=== PATIENT | male | born 1975 | race Caucasian/White ===

== ENCOUNTER 2016-07-16 13:26 | Emergency (ER) | payer MEDICARE, MEDICAID ==
[~2016-07-16] VITALS: Ht 172.7 cm; Wt 90.5 kg
[~2016-07-16 13:26] MED LIST: CITA20TA9 PO; RISPC50 IM; TRAZ-147 PO; VITAD1000 PO
[2016-07-16 18:39] VITALS: BP 125/79
[2016-07-16 18:40] LABS: BASOPHILS % (AUTO) 0.8 % (0.0-2.0); EOSINOPHILS % (AUTO) 3.4 % (1.0-6.0); HEMATOCRIT 42.8 % (41-53); HEMOGLOBIN 14.4 g/dL (13.5-17.5); LYMPHOCYTES # (AUTO) 2.6 K/uL (1.0-4.8); LYMPHOCYTES % (AUTO) 37.8 % (22.0-44.0); MEAN CORPUSCULAR HEMOGLOBIN 31.6 pg (26.0-34.0); MEAN CORPUSCULAR HGB CONC 33.7 G/dL (31.0-37.0); MEAN CORPUSCULAR VOLUME 94 fL (80-100); MONOCYTES # (AUTO) 0.7 K/uL (0.1-1.0); MONOCYTES % (AUTO) 10.7 % (2.0-9.0); NEUTROPHILS # (AUTO) 3.2 K/uL (1.8-7.7); NEUTROPHILS % (AUTO) 47.3 % (40.0-70.0); PLATELET COUNT (AUTO) 228 K/uL (150-450); RED BLOOD CELL COUNT(AUTO) 4.56 MIL/uL (4.50-5.90); RED CELL DISTRIBUTION WIDTH 13.7 % (11.5-14.5); WHITE BLOOD COUNT (AUTO) 6.8 K/uL (4.5-11.0)
[2016-07-16 18:53] LABS: ANION GAP 7 mmol/L (8-16); CARBON DIOXIDE 28 mmol/L (22-29); CHLORIDE 103 mmol/L (98-107); GLOMERULAR FILTR. RATE CALC > 60 mL/min (>60); POTASSIUM 4.3 mmol/L (3.5-5.1); SODIUM SERUM 138 mmol/L (136-145); UREA NITROGEN, BLOOD 9 mg/dL (7-18)
[2016-07-16 18:55] LABS: ALANINE AMINOTRANSFERASE 16 U/L (12-78); ALBUMIN 3.2 g/dL (3.4-5.0); ASPARTATE AMINOTRANSFERASE 11 U/L (15-37); BILIRUBIN,TOTAL 0.2 mg/dL (0.1-1.0); TOTAL PROTEIN, SERUM 6.3 g/dL (6.4-8.2)
== END 2016-07-16 18:44 | disposition home or self-care (01) ==
LOC: EMS 13:28
DX: F32.9 Major depressive disorder, single episode, unspecified (principal); F41.9 Anxiety disorder, unspecified; F20.9 Schizophrenia, unspecified; K21.9 Gastro-esophageal reflux disease without esophagitis; F12.90 Cannabis use, unspecified, uncomplicated
CPT/HCPCS: 36415; 80053; 80307; 85025; 99284; G0480

== ENCOUNTER 2016-09-01 08:38 | Emergency (ER) | payer MEDICARE, MEDICAID ==
[~2016-09-01] VITALS: Ht 167.6 cm; Wt 90.9 kg
[2016-09-01 09:09] LABS: BASOPHILS % (AUTO) 1.4 % (0.0-2.0); EOSINOPHILS % (AUTO) 1.7 % (1.0-6.0); HEMATOCRIT 40.7 % (41-53); HEMOGLOBIN 13.7 g/dL (13.5-17.5); LYMPHOCYTES # (AUTO) 1.5 K/uL (1.0-4.8); LYMPHOCYTES % (AUTO) 23.2 % (22.0-44.0); MEAN CORPUSCULAR HEMOGLOBIN 30.7 pg (26.0-34.0); MEAN CORPUSCULAR HGB CONC 33.7 G/dL (31.0-37.0); MEAN CORPUSCULAR VOLUME 91 fL (80-100); MONOCYTES # (AUTO) 0.6 K/uL (0.1-1.0); MONOCYTES % (AUTO) 8.6 % (2.0-9.0); NEUTROPHILS # (AUTO) 4.3 K/uL (1.8-7.7); NEUTROPHILS % (AUTO) 65.1 % (40.0-70.0); PLATELET COUNT (AUTO) 205 K/uL (150-450); RED BLOOD CELL COUNT(AUTO) 4.47 MIL/uL (4.50-5.90); RED CELL DISTRIBUTION WIDTH 12.8 % (11.5-14.5); WHITE BLOOD COUNT (AUTO) 6.6 K/uL (4.5-11.0)
[2016-09-01] MEDS ORDERED: DIAZEPAM 5 MG/ML 2 ML SYRINGE IVP ONE (09:15)
[2016-09-01] MEDS ORDERED: SODIUM CHLORIDE 0.9% 1,000 ML IV ONE (09:15)
[2016-09-01 09:20] LABS: ANION GAP 11 mmol/L (8-16); CALCIUM, TOTAL 8.7 mg/dL (8.8-10.5); CARBON DIOXIDE 24 mmol/L (22-29); CHLORIDE 105 mmol/L (98-107); GLOMERULAR FILTR. RATE CALC > 60 mL/min (>60); POTASSIUM 3.5 mmol/L (3.5-5.1); SODIUM SERUM 140 mmol/L (136-145); UREA NITROGEN, BLOOD 14 mg/dL (7-18)
[2016-09-01 09:25] LABS: ALANINE AMINOTRANSFERASE 17 U/L (12-78); ALBUMIN 3.7 g/dL (3.4-5.0); ASPARTATE AMINOTRANSFERASE 12 U/L (15-37); BILIRUBIN,TOTAL 0.4 mg/dL (0.1-1.0); TOTAL PROTEIN, SERUM 6.7 g/dL (6.4-8.2)
[2016-09-01 09:39] LABS: PROTHROMBIN TIME 10.4 SEC (9.4-11.6)
[2016-09-01 09:49] LABS: B-TYPE NATRIURETIC PEPTIDE 23 pg/mL (0-100)
[2016-09-01 09:54] LABS: CREATINE KINASE MB 1.2 ng/mL (0-5); CREATINE KINASE, TOTAL 111 U/L (39-308)
[2016-09-01 12:37] LABS: APPEARANCE,URINE CLEAR (CLEAR); GLUCOSE, URINE (UA) NEGATIVE (NEGATIVE); KETONES,URINE TRACE mg/dL (NEGATIVE); LEUKOCYTE ESTERASE ,URINE NEGATIVE (NEGATIVE); OCCULT BLOOD,URINE NEGATIVE (NEGATIVE); PROTEIN,URINE NEGATIVE (NEGATIVE)
[2016-09-01 12:39] LABS: ADD UA MICROSCOPIC NO
[2016-09-01 13:33] VITALS: BP 121/77
== END 2016-09-01 13:52 | disposition home or self-care (01) ==
LOC: EMS 08:40
DX: F29 Unspecified psychosis not due to a substance or known physiological condition (principal); F15.10 Other stimulant abuse, uncomplicated; K21.9 Gastro-esophageal reflux disease without esophagitis; F20.9 Schizophrenia, unspecified; F41.9 Anxiety disorder, unspecified; F12.90 Cannabis use, unspecified, uncomplicated
CPT/HCPCS: 36415; 71010; 80053; 80307; 81003; 82550; 82553; 83880; 84484; 85025; 85610; 85730; 93005; 96361; 96374; 99285; J1885; J7030

== ENCOUNTER 2016-10-07 23:30 | Inpatient (IN) | payer OTHER, MEDICAID ==
[~2016-10-07] VITALS: Ht 172.7 cm; Wt 94.9 kg
[2016-10-08 00:40] LABS: EOSINOPHILS % (AUTO) 2.4 % (1.0-6.0); HEMATOCRIT 41.9 % (41-53); HEMOGLOBIN 13.8 g/dL (13.5-17.5); LYMPHOCYTES # (AUTO) 2.2 K/uL (1.0-4.8); MEAN CORPUSCULAR HEMOGLOBIN 30.5 pg (26.0-34.0); MEAN CORPUSCULAR HGB CONC 32.9 G/dL (31.0-37.0); MEAN CORPUSCULAR VOLUME 93 fL (80-100); MONOCYTES # (AUTO) 0.6 K/uL (0.1-1.0); MONOCYTES % (AUTO) 8.2 % (2.0-9.0); NEUTROPHILS # (AUTO) 4.7 K/uL (1.8-7.7); NEUTROPHILS % (AUTO) 60.4 % (40.0-70.0); PLATELET COUNT (AUTO) 227 K/uL (150-450); RED BLOOD CELL COUNT(AUTO) 4.52 MIL/uL (4.50-5.90); RED CELL DISTRIBUTION WIDTH 13.6 % (11.5-14.5); WHITE BLOOD COUNT (AUTO) 7.8 K/uL (4.5-11.0)
[2016-10-08 00:53] LABS: ANION GAP 9 mmol/L (8-16); CALCIUM, TOTAL 9.3 mg/dL (8.8-10.5); CARBON DIOXIDE 27 mmol/L (22-29); CHLORIDE 107 mmol/L (98-107); CREATININE 0.82 mg/dL (0.60-1.30); GLOMERULAR FILTR. RATE CALC > 60 mL/min (>60); POTASSIUM 3.8 mmol/L (3.5-5.1); SODIUM SERUM 143 mmol/L (136-145); UREA NITROGEN, BLOOD 13 mg/dL (7-18)
[2016-10-08 01:00] LABS: ALANINE AMINOTRANSFERASE 19 U/L (12-78); ALBUMIN 3.2 g/dL (3.4-5.0); ASPARTATE AMINOTRANSFERASE 10 U/L (15-37); BILIRUBIN,TOTAL 0.2 mg/dL (0.1-1.0); TOTAL PROTEIN, SERUM 6.6 g/dL (6.4-8.2)
[2016-10-08] MEDS ORDERED: LORazepam 2 MG TABLET PO PRN (03:30)
[2016-10-08] MEDS ORDERED: HALOPERIDOL 5 MG TABLET PO PRN (03:30)
[2016-10-08] MEDS ORDERED: ZOLPIDEM TARTRATE 10 MG TABLET PO PRN (03:30)
[2016-10-08 03:47] LABS: APPEARANCE,URINE CLEAR (CLEAR); GLUCOSE, URINE (UA) NEGATIVE (NEGATIVE); KETONES,URINE NEGATIVE (NEGATIVE); LEUKOCYTE ESTERASE ,URINE NEGATIVE (NEGATIVE); OCCULT BLOOD,URINE NEGATIVE (NEGATIVE); PROTEIN,URINE NEGATIVE (NEGATIVE)
[2016-10-08 03:48] LABS: ADD UA MICROSCOPIC NO
[2016-10-08 12:00] VITALS: BP 115/69
[2016-10-08 16:17] VITALS: BP 122/72
[2016-10-08] MEDS: RisperiDONE 2 MG TABLET PO SCH (16:43)
[2016-10-08] MEDS ORDERED: BENZOCAINE/MENTHOL LOZENGE MM PRN (18:00)
[2016-10-08] MEDS ORDERED: CloNIDine HCL 0.1 MG TABLET PO PRN (18:00)
[2016-10-08] MEDS ORDERED: ONDANSETRON HCL 4 MG TABLET PO PRN (18:00)
[2016-10-08] MEDS ORDERED: LOPERAMIDE HCL 2 MG CAPSULE PO PRN (18:00)
[2016-10-08] MEDS ORDERED: MAG HYDROX/AL HYDROX/SIMETH ES 30 ML SUSPENSION UDCUP PO PRN (18:00)
[2016-10-08] MEDS ORDERED: MAGNESIUM HYDROXIDE SUSPENSION 30 ML UDCUP PO PRN (18:00)
[2016-10-08] MEDS ORDERED: ALBUTEROL SULFATE HFA 90 MCG/PUFF 8 GM INHALER IH PRN (18:00)
[2016-10-08] MEDS ORDERED: PETROLATUM,WHITE 71 GM JELLY TP PRN (18:00)
[2016-10-08] MEDS ORDERED: IBUPROFEN 600 MG TABLET PO PRN (18:00)
[2016-10-08] MEDS ORDERED: ACETAMINOPHEN 325 MG TABLET PO PRN (18:00)
[2016-10-08] MEDS ORDERED: BACITRACIN 28.4 GM OINTMENT TP PRN (18:00)
[2016-10-08] MEDS ORDERED: ROPINIRole HCL 0.25 MG TABLET PO SCH (21:00)
[2016-10-09 06:36] VITALS: BP 117/77
[2016-10-09 08:31] VITALS: BP 110/62
[2016-10-09] MEDS ORDERED: NICOTINE 21 MG/24 HOUR PATCH TD SCH (09:00)
[2016-10-09] MEDS: RisperiDONE 2 MG TABLET PO SCH ×2 (09:14→16:28)
[2016-10-09] MEDS: CHOLECALCIFEROL (VIT D3) 1,000 UNITS TABLET PO SCH (09:14)
[2016-10-09 16:17] VITALS: BP 119/75
[2016-10-10 06:21] VITALS: BP 118/74
[2016-10-10 08:34] VITALS: BP 115/60
[2016-10-10] MEDS: CHOLECALCIFEROL (VIT D3) 1,000 UNITS TABLET PO SCH (09:01)
[2016-10-10] MEDS: RisperiDONE 2 MG TABLET PO SCH ×2 (09:01→16:37)
[2016-10-10 16:19] VITALS: BP 109/66
[2016-10-10] MEDS: BENZTROPINE MESYLATE 0.5 MG TABLET PO SCH (17:35)
[2016-10-11 00:12] VITALS: BP 118/76
[2016-10-11 08:00] VITALS: BP 115/76
[2016-10-11] MEDS: RisperiDONE 2 MG TABLET PO SCH ×2 (08:37→16:21)
[2016-10-11] MEDS: CHOLECALCIFEROL (VIT D3) 1,000 UNITS TABLET PO SCH (08:37)
[2016-10-11] MEDS: BENZTROPINE MESYLATE 0.5 MG TABLET PO SCH ×2 (08:44→16:21)
[2016-10-11 16:15] VITALS: BP 121/71
[2016-10-12 06:38] VITALS: BP 127/71
[2016-10-12 08:13] VITALS: BP 122/69
[2016-10-12] MEDS: RisperiDONE 2 MG TABLET PO SCH ×2 (08:44→16:50)
[2016-10-12] MEDS: BENZTROPINE MESYLATE 0.5 MG TABLET PO SCH ×2 (08:44→16:50)
[2016-10-12] MEDS: CHOLECALCIFEROL (VIT D3) 1,000 UNITS TABLET PO SCH (08:44)
[2016-10-12 16:00] VITALS: BP 108/64
[2016-10-13 08:27] VITALS: BP 116/63
[2016-10-13] MEDS: RisperiDONE 2 MG TABLET PO SCH ×2 (08:42→16:18)
[2016-10-13] MEDS: CHOLECALCIFEROL (VIT D3) 1,000 UNITS TABLET PO SCH (08:42)
[2016-10-13] MEDS: BENZTROPINE MESYLATE 0.5 MG TABLET PO SCH ×2 (08:42→16:18)
[2016-10-13 16:25] VITALS: BP 105/68
[2016-10-14 00:28] VITALS: BP 100/65
[2016-10-14 08:33] VITALS: BP 104/65
[2016-10-14] MEDS: CHOLECALCIFEROL (VIT D3) 1,000 UNITS TABLET PO SCH (09:12)
[2016-10-14] MEDS: BENZTROPINE MESYLATE 0.5 MG TABLET PO SCH ×2 (09:12→16:29)
[2016-10-14] MEDS: RisperiDONE 2 MG TABLET PO SCH ×2 (09:12→16:29)
[2016-10-14 16:18] VITALS: BP 108/75
[2016-10-15 00:49] VITALS: BP 100/66
[2016-10-15 08:14] VITALS: BP 113/65
[2016-10-15] MEDS: CHOLECALCIFEROL (VIT D3) 1,000 UNITS TABLET PO SCH (08:39)
[2016-10-15] MEDS: RisperiDONE 2 MG TABLET PO SCH ×2 (08:39→16:45)
[2016-10-15] MEDS: BENZTROPINE MESYLATE 0.5 MG TABLET PO SCH ×2 (08:39→16:45)
[2016-10-15 16:15] VITALS: BP 107/61
[2016-10-16 03:44] VITALS: BP 108/70
[2016-10-16 08:16] VITALS: BP 108/65
[2016-10-16] MEDS: BENZTROPINE MESYLATE 0.5 MG TABLET PO SCH ×2 (09:10→17:00)
[2016-10-16] MEDS: CHOLECALCIFEROL (VIT D3) 1,000 UNITS TABLET PO SCH (09:10)
[2016-10-16] MEDS: RisperiDONE 2 MG TABLET PO SCH ×2 (09:10→17:00)
[2016-10-16] MEDS ORDERED: RisperiDONE MICROSPHERES 50 MG/2 ML SYRINGE IM SCH (11:00)
[2016-10-16] MEDS ORDERED: RISPC50 IM (11:02)
[2016-10-16] MEDS ORDERED: BENZ0.5T6 PO (11:02)
[2016-10-16] MEDS ORDERED: RISP2 PO (11:02)
== END 2016-10-16 18:25 | disposition home or self-care (01) | DRG 885 ==
LOC: EMS 23:32 → B2X 10-08 09:43
PROVIDERS: ADMIT Psychiatry & Neurology Child & Adolescent Psychiatry; ATTEND Psychiatry & Neurology Child & Adolescent Psychiatry
DX: F25.1 Schizoaffective disorder, depressive type (principal); R45.851 Suicidal ideations; K21.9 Gastro-esophageal reflux disease without esophagitis; F12.90 Cannabis use, unspecified, uncomplicated; F41.9 Anxiety disorder, unspecified; E55.9 Vitamin D deficiency, unspecified; F15.90 Other stimulant use, unspecified, uncomplicated; E78.5 Hyperlipidemia, unspecified; F17.210 Nicotine dependence, cigarettes, uncomplicated; G47.00 Insomnia, unspecified; J44.9 Chronic obstructive pulmonary disease, unspecified; K59.00 Constipation, unspecified; Z59.0 Homelessness; Z91.5 Personal history of self-harm; Z71.6 Tobacco abuse counseling
CPT/HCPCS: 87081; 99285; G0480; J2794

== ENCOUNTER 2016-10-19 12:17 | Emergency (ER) | payer MEDICARE, MEDICAID ==
[~2016-10-19] VITALS: Ht 165.1 cm; Wt 90.9 kg
[~2016-10-19 12:17] MED LIST changes: +BENZ0.5T6 PO; -CITA20TA9 PO; +RISP2 PO; -TRAZ-147 PO; -VITAD1000 PO
[2016-10-19 13:11] LABS: BASOPHILS % (AUTO) 0.6 % (0.0-2.0); EOSINOPHILS % (AUTO) 1.3 % (1.0-6.0); HEMATOCRIT 40.9 % (41-53); HEMOGLOBIN 13.7 g/dL (13.5-17.5); LYMPHOCYTES # (AUTO) 1.7 K/uL (1.0-4.8); LYMPHOCYTES % (AUTO) 21.7 % (22.0-44.0); MEAN CORPUSCULAR HEMOGLOBIN 30.6 pg (26.0-34.0); MEAN CORPUSCULAR HGB CONC 33.4 G/dL (31.0-37.0); MEAN CORPUSCULAR VOLUME 91 fL (80-100); MONOCYTES # (AUTO) 0.7 K/uL (0.1-1.0); MONOCYTES % (AUTO) 8.5 % (2.0-9.0); NEUTROPHILS # (AUTO) 5.2 K/uL (1.8-7.7); NEUTROPHILS % (AUTO) 67.9 % (40.0-70.0); PLATELET COUNT (AUTO) 244 K/uL (150-450); RED BLOOD CELL COUNT(AUTO) 4.47 MIL/uL (4.50-5.90); RED CELL DISTRIBUTION WIDTH 13.5 % (11.5-14.5); WHITE BLOOD COUNT (AUTO) 7.7 K/uL (4.5-11.0)
[2016-10-19 13:23] LABS: ANION GAP 16 mmol/L (8-16); CALCIUM, TOTAL 8.6 mg/dL (8.8-10.5); CARBON DIOXIDE 21 mmol/L (22-29); CHLORIDE 102 mmol/L (98-107); CREATININE 0.99 mg/dL (0.60-1.30); GLOMERULAR FILTR. RATE CALC > 60 mL/min (>60); POTASSIUM 3.1 mmol/L (3.5-5.1); SODIUM SERUM 139 mmol/L (136-145); UREA NITROGEN, BLOOD 14 mg/dL (7-18)
[2016-10-19 13:29] LABS: ALANINE AMINOTRANSFERASE 20 U/L (12-78); ALBUMIN 3.5 g/dL (3.4-5.0); ASPARTATE AMINOTRANSFERASE 15 U/L (15-37); BILIRUBIN,TOTAL 0.5 mg/dL (0.1-1.0); TOTAL PROTEIN, SERUM 6.8 g/dL (6.4-8.2)
[2016-10-19] MEDS ORDERED: ChlordiazePOXIDE HCL 25 MG CAPSULE PO ONE (16:30)
[2016-10-19 17:24] VITALS: BP 116/70
[2016-10-19] MEDS ORDERED: POTASSIUM CHLORIDE 20 MEQ ER TABLET PO ONE (17:30)
== END 2016-10-19 18:39 | disposition home or self-care (01) ==
LOC: EMS 12:21
DX: F41.9 Anxiety disorder, unspecified (principal); R00.0 Tachycardia, unspecified; E87.6 Hypokalemia; F15.10 Other stimulant abuse, uncomplicated; F10.10 Alcohol abuse, uncomplicated; F20.9 Schizophrenia, unspecified; K21.9 Gastro-esophageal reflux disease without esophagitis; Y90.3 Blood alcohol level of 60-79 mg/100 ml
CPT/HCPCS: 36415; 80053; 80307; 85025; 93005; 99285; 99406; G0480

== ENCOUNTER 2016-10-20 13:56 | Emergency (ER) | payer MEDICARE, MEDICAID ==
[~2016-10-20] VITALS: Ht 162.6 cm; Wt 136.6 kg
[2016-10-20 15:08] LABS: BASOPHILS % (AUTO) 0.6 % (0.0-2.0); EOSINOPHILS % (AUTO) 2.9 % (1.0-6.0); HEMATOCRIT 44.5 % (41-53); HEMOGLOBIN 14.6 g/dL (13.5-17.5); LYMPHOCYTES # (AUTO) 1.4 K/uL (1.0-4.8); LYMPHOCYTES % (AUTO) 18.9 % (22.0-44.0); MEAN CORPUSCULAR HEMOGLOBIN 30.5 pg (26.0-34.0); MEAN CORPUSCULAR HGB CONC 32.8 G/dL (31.0-37.0); MEAN CORPUSCULAR VOLUME 93 fL (80-100); MONOCYTES # (AUTO) 0.5 K/uL (0.1-1.0); MONOCYTES % (AUTO) 6.8 % (2.0-9.0); NEUTROPHILS # (AUTO) 5.4 K/uL (1.8-7.7); NEUTROPHILS % (AUTO) 70.8 % (40.0-70.0); PLATELET COUNT (AUTO) 282 K/uL (150-450); RED BLOOD CELL COUNT(AUTO) 4.79 MIL/uL (4.50-5.90); RED CELL DISTRIBUTION WIDTH 13.8 % (11.5-14.5); WHITE BLOOD COUNT (AUTO) 7.6 K/uL (4.5-11.0)
[2016-10-20 15:13] LABS: ANION GAP 11 mmol/L (8-16); CARBON DIOXIDE 26 mmol/L (22-29); CHLORIDE 104 mmol/L (98-107); CREATININE 0.97 mg/dL (0.60-1.30); GLOMERULAR FILTR. RATE CALC > 60 mL/min (>60); SODIUM SERUM 141 mmol/L (136-145); UREA NITROGEN, BLOOD 9 mg/dL (7-18)
[2016-10-20 15:19] LABS: ALANINE AMINOTRANSFERASE 22 U/L (12-78); ALBUMIN 3.6 g/dL (3.4-5.0); ASPARTATE AMINOTRANSFERASE 16 U/L (15-37); BILIRUBIN,TOTAL 0.5 mg/dL (0.1-1.0); TOTAL PROTEIN, SERUM 7.2 g/dL (6.4-8.2)
[2016-10-20] MEDS ORDERED: IBUPROFEN 800 MG TABLET PO ONE (18:00)
[2016-10-20] MEDS ORDERED: BENZTROPINE MESYLATE 2 MG TABLET PO ONE (18:00)
[2016-10-20 19:42] VITALS: BP 135/82
== END 2016-10-20 19:45 | disposition home or self-care (01) ==
LOC: EEVIPCON 13:58 → EMS 13:58
DX: S96.912A Strain of unspecified muscle and tendon at ankle and foot level, left foot, initial encounter (principal); F20.9 Schizophrenia, unspecified; F19.10 Other psychoactive substance abuse, uncomplicated; G25.9 Extrapyramidal and movement disorder, unspecified; F41.9 Anxiety disorder, unspecified; K21.9 Gastro-esophageal reflux disease without esophagitis
CPT/HCPCS: 36415; 80053; 80307; 85025; 93005; 99285; G0480

== ENCOUNTER 2016-11-06 17:34 | Emergency (ER) | payer MEDICARE, MEDICAID ==
[~2016-11-06] VITALS: Ht 167.6 cm; Wt 90.0 kg
[2016-11-06] MEDS: DiphenhydrAMINE HCL 50 MG/ML VIAL IVP ONE (18:56)
[2016-11-06] MEDS: KETOROLAC TROMETHAMINE 30 MG/ML VIAL IVP ONE (18:56)
[2016-11-06] MEDS: SODIUM CHLORIDE 0.9% 1,000 ML IV ONE (18:56)
[2016-11-06] MEDS: ONDANSETRON HCL 4 MG/2 ML VIAL IVP ONE (18:56)
[2016-11-06 20:14] VITALS: BP 119/71
== END 2016-11-06 20:18 | disposition home or self-care (01) ==
LOC: EMS 17:35
DX: F41.9 Anxiety disorder, unspecified (principal); R51 Headache; F17.210 Nicotine dependence, cigarettes, uncomplicated; K21.9 Gastro-esophageal reflux disease without esophagitis; F20.9 Schizophrenia, unspecified
CPT/HCPCS: 96374; 96375; 99284; 99406; J1200; J1885; J2405; J7030

== ENCOUNTER 2017-04-03 19:33 | Inpatient (IN) | payer OTHER, MEDICAID ==
[~2017-04-03] VITALS: Ht 165.1 cm; Wt 109.5 kg
[2017-04-03 20:22] LABS: BASOPHILS # (AUTO) 0.04 K/uL (0.00-0.20); BASOPHILS % (AUTO) 0.6 % (0.0-2.0); EOSINOPHILS # (AUTO) 0.22 K/uL (0.00-0.70); EOSINOPHILS % (AUTO) 3.27 % (1.0-6.0); HEMATOCRIT 41.6 % (41-53); HEMOGLOBIN 14.1 g/dL (13.5-17.5); LYMPHOCYTES # (AUTO) 2.2 K/uL (1.0-4.8); LYMPHOCYTES % (AUTO) 32.2 % (22.0-44.0); MEAN CORPUSCULAR HEMOGLOBIN 31.2 pg (26.0-34.0); MEAN CORPUSCULAR VOLUME 92 fL (80-100); MONOCYTES # (AUTO) 0.7 K/uL (0.1-1.0); MONOCYTES % (AUTO) 9.9 % (2.0-9.0); NEUTROPHILS # (AUTO) 3.6 K/uL (1.8-7.7); NEUTROPHILS % (AUTO) 54.1 % (40.0-70.0); PLATELET COUNT (AUTO) 248 K/uL (150-450); RED BLOOD CELL COUNT(AUTO) 4.53 MIL/uL (4.50-5.90); RED CELL DISTRIBUTION WIDTH 13.4 % (11.5-14.5); WHITE BLOOD COUNT (AUTO) 6.7 K/uL (4.5-11.0)
[2017-04-03 20:44] LABS: ANION GAP 7 mmol/L (8-16); CALCIUM, TOTAL 8.9 mg/dL (8.8-10.5); CARBON DIOXIDE 27 mmol/L (22-29); CHLORIDE 105 mmol/L (98-107); CREATININE 0.96 mg/dL (0.60-1.30); GLOMERULAR FILTR. RATE CALC > 60 mL/min (>60); POTASSIUM 4.3 mmol/L (3.5-5.1); SODIUM SERUM 139 mmol/L (136-145); UREA NITROGEN, BLOOD 16 mg/dL (7-18)
[2017-04-03] MEDS ORDERED: HALOPERIDOL 5 MG TABLET PO PRN (20:45)
[2017-04-03] MEDS ORDERED: ZOLPIDEM TARTRATE 10 MG TABLET PO PRN (20:45)
[2017-04-03 20:50] LABS: ALANINE AMINOTRANSFERASE 37 U/L (12-78); ALBUMIN 3.4 g/dL (3.4-5.0); ASPARTATE AMINOTRANSFERASE 21 U/L (15-37); BILIRUBIN,TOTAL 0.3 mg/dL (0.1-1.0); TOTAL PROTEIN, SERUM 6.6 g/dL (6.4-8.2)
[2017-04-04 00:15] VITALS: BP 124/76
[2017-04-04] MEDS ORDERED: INFLUENZA VIRUS VACCINE QVS 2017-18 (3YR+)/PF 60 MCG/0.5 ML SYRINGE IM ONE (03:30)
[2017-04-04 08:39] VITALS: BP 123/77
[2017-04-04] MEDS: LORazepam 2 MG TABLET PO PRN (16:13)
[2017-04-04 16:29] VITALS: BP 135/75
[2017-04-04] MEDS: MIRTAZAPINE 15 MG TABLET PO SCH (20:09)
[2017-04-04] MEDS ORDERED: MIRTAZAPINE 15 MG TABLET PO SCH (21:00)
[2017-04-05 06:04] VITALS: BP 113/66
[2017-04-05 08:34] VITALS: BP 128/74
[2017-04-05 17:32] VITALS: BP 132/71
[2017-04-05] MEDS: MIRTAZAPINE 15 MG TABLET PO SCH (20:07)
[2017-04-06 03:29] VITALS: BP 111/62
[2017-04-06 08:26] VITALS: BP 133/72
[2017-04-06] MEDS: CHOLECALCIFEROL (VIT D3) 1,000 UNITS TABLET PO SCH (09:06)
[2017-04-06 18:45] VITALS: BP 129/79
[2017-04-06] MEDS: MIRTAZAPINE 15 MG TABLET PO SCH (20:55)
[2017-04-07 06:06] VITALS: BP 124/65
[2017-04-07] MEDS: CHOLECALCIFEROL (VIT D3) 1,000 UNITS TABLET PO SCH (08:29)
[2017-04-07 08:54] VITALS: BP 117/75
[2017-04-07] MEDS: LORazepam 2 MG TABLET PO PRN (14:07)
[2017-04-07 16:02] VITALS: BP 119/71
[2017-04-07] MEDS: MIRTAZAPINE 15 MG TABLET PO SCH (20:47)
[2017-04-08 01:17] VITALS: BP 109/66
[2017-04-08 08:38] VITALS: BP 109/63
[2017-04-08] MEDS: CHOLECALCIFEROL (VIT D3) 1,000 UNITS TABLET PO SCH (08:41)
[2017-04-08 16:39] VITALS: BP 129/78
[2017-04-08] MEDS ORDERED: MIRTAZAPINE 15 MG TABLET PO SCH (21:00)
[2017-04-09 06:27] VITALS: BP 105/65
[2017-04-09] MEDS: CHOLECALCIFEROL (VIT D3) 1,000 UNITS TABLET PO SCH (08:29)
[2017-04-09] MEDS: LORazepam 2 MG TABLET PO PRN (08:30)
[2017-04-09 09:09] VITALS: BP 122/67
[2017-04-09] MEDS ORDERED: MIRT30 PO (15:51)
[2017-04-09] MEDS ORDERED: VITAD1000 PO (15:52)
[2017-04-09 16:09] VITALS: BP 106/65
== END 2017-04-09 17:40 | disposition home or self-care (01) | DRG 885 ==
LOC: EMS 19:35 → B2S 22:15 → B2X 04-09 10:15
PROVIDERS: ADMIT Psychiatry & Neurology Psychiatry; ATTEND Psychiatry & Neurology Psychiatry
PROC: 3E0234Z Introduction of Serum, Toxoid and Vaccine into Muscle, Percutaneous Approach (ICD-10-PCS; principal; 2017-04-04)
DX: F25.1 Schizoaffective disorder, depressive type (principal); R45.851 Suicidal ideations; Z59.0 Homelessness; E78.5 Hyperlipidemia, unspecified; F12.10 Cannabis abuse, uncomplicated; F17.200 Nicotine dependence, unspecified, uncomplicated; F15.90 Other stimulant use, unspecified, uncomplicated; F41.9 Anxiety disorder, unspecified; K21.9 Gastro-esophageal reflux disease without esophagitis; R45.84 Anhedonia; Z23 Encounter for immunization
CPT/HCPCS: 82306; 87081; 90471; 99285; G0480

== ENCOUNTER 2017-05-05 19:22 | Inpatient (IN) | payer MEDICAID, MEDICARE, OTHER ==
[~2017-05-05] VITALS: Ht 162.6 cm; Wt 112.9 kg
[~2017-05-05 19:22] MED LIST changes: -BENZ0.5T6 PO; +MIRT30 PO; -RISP2 PO; -RISPC50 IM; +VITAD1000 PO
[2017-05-05 19:40] LABS: BASOPHILS # (AUTO) 0.04 K/uL (0.00-0.20); BASOPHILS % (AUTO) 0.7 % (0.0-2.0); EOSINOPHILS % (AUTO) 3.37 % (1.0-6.0); HEMATOCRIT 41.5 % (41-53); LYMPHOCYTES # (AUTO) 1.7 K/uL (1.0-4.8); LYMPHOCYTES % (AUTO) 29.3 % (22.0-44.0); MEAN CORPUSCULAR HEMOGLOBIN 31.1 pg (26.0-34.0); MEAN CORPUSCULAR HGB CONC 33.7 G/dL (31.0-37.0); MEAN CORPUSCULAR VOLUME 92 fL (80-100); MONOCYTES # (AUTO) 0.5 K/uL (0.1-1.0); MONOCYTES % (AUTO) 9.1 % (2.0-9.0); NEUTROPHILS # (AUTO) 3.4 K/uL (1.8-7.7); NEUTROPHILS % (AUTO) 57.6 % (40.0-70.0); PLATELET COUNT (AUTO) 263 K/uL (150-450); RED BLOOD CELL COUNT(AUTO) 4.49 MIL/uL (4.50-5.90); RED CELL DISTRIBUTION WIDTH 13.4 % (11.5-14.5); WHITE BLOOD COUNT (AUTO) 5.9 K/uL (4.5-11.0)
[2017-05-05 19:54] LABS: ANION GAP 8 mmol/L (8-16); CALCIUM, TOTAL 8.4 mg/dL (8.8-10.5); CARBON DIOXIDE 25 mmol/L (22-29); CHLORIDE 109 mmol/L (98-107); CREATININE 1.06 mg/dL (0.60-1.30); GLOMERULAR FILTR. RATE CALC > 60 mL/min (>60); POTASSIUM 3.9 mmol/L (3.5-5.1); SODIUM SERUM 142 mmol/L (136-145); UREA NITROGEN, BLOOD 15 mg/dL (7-18)
[2017-05-05 20:00] LABS: ALANINE AMINOTRANSFERASE 52 U/L (12-78); ALBUMIN 3.2 g/dL (3.4-5.0); ASPARTATE AMINOTRANSFERASE 18 U/L (15-37); BILIRUBIN,TOTAL 0.2 mg/dL (0.1-1.0); TOTAL PROTEIN, SERUM 6.2 g/dL (6.4-8.2)
[2017-05-05] MEDS ORDERED: ZOLPIDEM TARTRATE 10 MG TABLET PO PRN (20:30)
[2017-05-05] MEDS ORDERED: HALOPERIDOL 5 MG TABLET PO PRN (20:30)
[2017-05-06 00:41] VITALS: BP 118/69
[2017-05-06 09:17] VITALS: BP 117/75
[2017-05-06] MEDS: ARIPiprazole 5 MG TABLET PO SCH (16:02)
[2017-05-06 17:43] VITALS: BP 118/78
[2017-05-06] MEDS: MIRTAZAPINE 15 MG TABLET PO SCH (21:08)
[2017-05-07 06:20] VITALS: BP 123/72
[2017-05-07] MEDS: ARIPiprazole 5 MG TABLET PO SCH (08:16)
[2017-05-07 08:19] VITALS: BP 114/64
[2017-05-07 16:18] VITALS: BP 108/70
[2017-05-07] MEDS: MIRTAZAPINE 15 MG TABLET PO SCH (20:29)
[2017-05-08 07:15] VITALS: BP 119/75
[2017-05-08 08:00] VITALS: BP 122/61
[2017-05-08] MEDS: ARIPiprazole 10 MG TABLET PO SCH (09:03)
[2017-05-08] MEDS: LORazepam 2 MG TABLET PO PRN (09:31)
[2017-05-08 16:05] VITALS: BP 130/82
[2017-05-08] MEDS: MIRTAZAPINE 15 MG TABLET PO SCH (20:28)
[2017-05-09 06:14] VITALS: BP 107/68
[2017-05-09 08:56] VITALS: BP 103/61
[2017-05-09] MEDS: ARIPiprazole 10 MG TABLET PO SCH (09:56)
[2017-05-09] MEDS: LORazepam 2 MG TABLET PO PRN ×2 (10:05→17:00)
[2017-05-09 16:03] VITALS: BP 101/65
[2017-05-09] MEDS: MIRTAZAPINE 15 MG TABLET PO SCH (20:08)
[2017-05-10 00:46] VITALS: BP 103/63
[2017-05-10 08:10] VITALS: BP 124/76
[2017-05-10] MEDS: ARIPiprazole 10 MG TABLET PO SCH (08:13)
[2017-05-10 16:09] VITALS: BP 135/88
[2017-05-10] MEDS: MIRTAZAPINE 15 MG TABLET PO SCH (20:25)
[2017-05-11 02:05] VITALS: BP 116/63
[2017-05-11 08:36] VITALS: BP 116/76
[2017-05-11] MEDS ORDERED: ARIPiprazole 10 MG TABLET PO SCH (09:00)
[2017-05-11] MEDS ORDERED: ARIP10TA8 PO (11:22)
[2017-05-11] MEDS ORDERED: MIRT15 PO (11:22)
== END 2017-05-11 15:17 | disposition home or self-care (01) | DRG 885 ==
LOC: EMS 19:25 → B2S 21:30 → B2X 05-09 21:21
PROVIDERS: ADMIT Psychiatry & Neurology Psychiatry; ATTEND Psychiatry & Neurology Psychiatry
DX: F25.1 Schizoaffective disorder, depressive type (principal); E44.1 Mild protein-calorie malnutrition; R45.851 Suicidal ideations; Z68.41 Body mass index [BMI] 40.0-44.9, adult; F12.90 Cannabis use, unspecified, uncomplicated; F32.9 Major depressive disorder, single episode, unspecified; F41.9 Anxiety disorder, unspecified; K21.9 Gastro-esophageal reflux disease without esophagitis; Z59.0 Homelessness; Z79.899 Other long term (current) drug therapy
CPT/HCPCS: 87081; 99285; G0480

== ENCOUNTER 2017-05-20 18:05 | Inpatient (IN) | payer OTHER, MEDICAID ==
[~2017-05-20] VITALS: Ht 162.6 cm; Wt 109.4 kg
[~2017-05-20 18:05] MED LIST changes: +ARIP10TA8 PO; +MIRT15 PO; -MIRT30 PO; -VITAD1000 PO
[2017-05-20 19:42] LABS: BASOPHILS # (AUTO) 0.06 K/uL (0.00-0.20); BASOPHILS % (AUTO) 0.9 % (0.0-2.0); EOSINOPHILS # (AUTO) 0.41 K/uL (0.00-0.70); EOSINOPHILS % (AUTO) 6.29 % (1.0-6.0); HEMATOCRIT 45.2 % (41-53); HEMOGLOBIN 15.3 g/dL (13.5-17.5); LYMPHOCYTES # (AUTO) 1.9 K/uL (1.0-4.8); LYMPHOCYTES % (AUTO) 29.4 % (22.0-44.0); MEAN CORPUSCULAR HEMOGLOBIN 31.3 pg (26.0-34.0); MEAN CORPUSCULAR HGB CONC 33.9 G/dL (31.0-37.0); MEAN CORPUSCULAR VOLUME 93 fL (80-100); MONOCYTES # (AUTO) 0.5 K/uL (0.1-1.0); MONOCYTES % (AUTO) 7.3 % (2.0-9.0); NEUTROPHILS # (AUTO) 3.7 K/uL (1.8-7.7); NEUTROPHILS % (AUTO) 56.1 % (40.0-70.0); PLATELET COUNT (AUTO) 232 K/uL (150-450); RED BLOOD CELL COUNT(AUTO) 4.88 MIL/uL (4.50-5.90); RED CELL DISTRIBUTION WIDTH 13.5 % (11.5-14.5); WHITE BLOOD COUNT (AUTO) 6.5 K/uL (4.5-11.0)
[2017-05-20 20:28] LABS: ASPARTATE AMINOTRANSFERASE 15 U/L (15-37); BILIRUBIN,TOTAL 0.3 mg/dL (0.1-1.0); CALCIUM, TOTAL 9.1 mg/dL (8.8-10.5); CARBON DIOXIDE 24 mmol/L (22-29); CREATININE 1.16 mg/dL (0.60-1.30); GLOMERULAR FILTR. RATE CALC > 60 mL/min (>60); TOTAL PROTEIN, SERUM 6.6 g/dL (6.4-8.2); UREA NITROGEN, BLOOD 8 mg/dL (7-18)
[2017-05-20 20:38] LABS: ALANINE AMINOTRANSFERASE 33 U/L (12-78); ALBUMIN 3.5 g/dL (3.4-5.0); ANION GAP 12 mmol/L (8-16); CHLORIDE 104 mmol/L (98-107); POTASSIUM 3.5 mmol/L (3.5-5.1); SODIUM SERUM 140 mmol/L (136-145)
[2017-05-21] MEDS ORDERED: ZOLPIDEM TARTRATE 10 MG TABLET PO PRN (02:15)
[2017-05-21] MEDS ORDERED: HALOPERIDOL 5 MG TABLET PO PRN (02:15)
[2017-05-21 04:23] VITALS: BP 119/73
[2017-05-21 04:25] VITALS: BP 119/73
[2017-05-21] MEDS ORDERED: -PHARMACY VACCINE NOTE- MISC ONE ×2 (04:30)
[2017-05-21 07:52] LABS: APPEARANCE,URINE CLEAR (CLEAR); GLUCOSE, URINE (UA) NEGATIVE (NEGATIVE); KETONES,URINE TRACE mg/dL (NEGATIVE); LEUKOCYTE ESTERASE ,URINE NEGATIVE (NEGATIVE); OCCULT BLOOD,URINE NEGATIVE (NEGATIVE); PH,URINE 5.5 (5.0-8.0); PROTEIN,URINE NEGATIVE (NEGATIVE)
[2017-05-21 07:55] LABS: ADD UA MICROSCOPIC NO
[2017-05-21 08:37] VITALS: BP 122/81
[2017-05-21] MEDS: ARIPiprazole 10 MG TABLET PO SCH (12:59)
[2017-05-21 16:06] VITALS: BP_SYST 107; BP_SYST 114; BP_DIAS 63; BP_DIAS 64
[2017-05-21] MEDS ORDERED: DIVALPROEX SODIUM 500 MG ER TABLET PO SCH (17:00)
[2017-05-21] MEDS ORDERED: IBUPROFEN 400 MG TABLET PO PRN (17:15)
[2017-05-21] MEDS ORDERED: ACETAMINOPHEN 325 MG TABLET PO PRN (17:15)
[2017-05-21] MEDS: MIRTAZAPINE 15 MG TABLET PO SCH (20:39)
[2017-05-22 07:04] VITALS: BP 125/80
[2017-05-22 08:12] LABS: HEMOGLOBIN A1C 5.4 % (4.5-6.2)
[2017-05-22 08:32] VITALS: BP 126/63
[2017-05-22] MEDS: ARIPiprazole 10 MG TABLET PO SCH (08:37)
[2017-05-22 08:58] LABS: CHOL/HDL RATIO 4.1 (4.2-7.3); THYROID STIMULATING HORMONE 0.51 uIU/mL (0.36-3.74)
[2017-05-22 16:23] VITALS: BP 113/74
[2017-05-22] MEDS: MIRTAZAPINE 15 MG TABLET PO SCH (20:35)
[2017-05-23 00:26] VITALS: BP 117/79
[2017-05-23 08:28] VITALS: BP 117/70
[2017-05-23] MEDS: ARIPiprazole 10 MG TABLET PO SCH (08:40)
[2017-05-23] MEDS ORDERED: ARIPiprazole LAUROXIL ER SUSPENSION 882 MG/3.2 ML SYRINGE IM SCH (09:00)
[2017-05-23 16:11] VITALS: BP 129/79
[2017-05-23] MEDS: MIRTAZAPINE 15 MG TABLET PO SCH (20:27)
[2017-05-24 00:56] VITALS: BP 115/69
[2017-05-24 08:40] VITALS: BP 122/69
[2017-05-24] MEDS: ARIPiprazole 10 MG TABLET PO SCH (09:17)
[2017-05-24 16:18] VITALS: BP 111/68
[2017-05-24] MEDS: MIRTAZAPINE 15 MG TABLET PO SCH (20:19)
[2017-05-25 02:22] VITALS: BP 116/74
[2017-05-25 08:44] VITALS: BP 109/64
[2017-05-25] MEDS: ARIPiprazole 10 MG TABLET PO SCH (09:07)
[2017-05-25 16:19] VITALS: BP 119/61
[2017-05-25] MEDS: MIRTAZAPINE 15 MG TABLET PO SCH (20:43)
[2017-05-26 00:18] VITALS: BP 117/65
[2017-05-26 08:00] VITALS: BP 119/67
[2017-05-26] MEDS: ARIPiprazole 10 MG TABLET PO SCH (08:57)
[2017-05-26] MEDS: LORazepam 2 MG TABLET PO PRN (14:47)
[2017-05-26 16:40] VITALS: BP 136/75
[2017-05-26] MEDS: MIRTAZAPINE 15 MG TABLET PO SCH (20:36)
[2017-05-27 01:00] VITALS: BP 109/63
[2017-05-27 08:17] VITALS: BP 135/72
[2017-05-27] MEDS: ARIPiprazole 10 MG TABLET PO SCH (08:29)
[2017-05-27] MEDS: LORazepam 2 MG TABLET PO PRN (08:30)
[2017-05-27] MEDS ORDERED: ARIP882S IM (13:58)
== END 2017-05-27 14:45 | disposition home or self-care (01) | DRG 885 ==
LOC: EMS 18:07 → B2X 05-21 02:00
PROVIDERS: ADMIT Psychiatry & Neurology Psychiatry; ATTEND Psychiatry & Neurology Psychiatry
DX: F25.1 Schizoaffective disorder, depressive type (principal); R45.851 Suicidal ideations; F10.10 Alcohol abuse, uncomplicated; F12.90 Cannabis use, unspecified, uncomplicated; F41.9 Anxiety disorder, unspecified; F15.10 Other stimulant abuse, uncomplicated; K21.9 Gastro-esophageal reflux disease without esophagitis; Z59.0 Homelessness; Z91.19 Patient's noncompliance with other medical treatment and regimen
CPT/HCPCS: 83036; 84443; 87081; 99285; G0480

== ENCOUNTER 2018-06-08 13:52 | Inpatient (IN) | payer OTHER, MEDICAID ==
[~2018-06-08] VITALS: Ht 162.6 cm; Wt 96.2 kg
[~2018-06-08 13:52] MED LIST changes: -ARIP10TA8 PO; -MIRT15 PO; +RISP3 PO
[2018-06-08 14:37] VITALS: BP 144/80
[2018-06-08] MEDS ORDERED: HALOPERIDOL 5 MG TABLET PO PRN (14:45)
[2018-06-08 17:06] VITALS: BP 102/72
[2018-06-08] MEDS ORDERED: MAGNESIUM HYDROXIDE SUSPENSION 30 ML UDCUP PO PRN (18:45)
[2018-06-08] MEDS ORDERED: IBUPROFEN 600 MG TABLET PO PRN (18:45)
[2018-06-08] MEDS ORDERED: CloNIDine HCL 0.1 MG TABLET PO PRN (18:45)
[2018-06-08] MEDS ORDERED: ALBUTEROL SULFATE HFA 90 MCG/PUFF 8 GM INHALER IH PRN (18:45)
[2018-06-08] MEDS ORDERED: BENZOCAINE/MENTHOL LOZENGE MM PRN (18:45)
[2018-06-08] MEDS ORDERED: LOPERAMIDE HCL 2 MG CAPSULE PO PRN (18:45)
[2018-06-08] MEDS ORDERED: PETROLATUM,WHITE 71 GM JELLY TP PRN (18:45)
[2018-06-08] MEDS ORDERED: MAG HYDROX/AL HYDROX/SIMETH ES 30 ML SUSPENSION UDCUP PO PRN (18:45)
[2018-06-08] MEDS ORDERED: ONDANSETRON HCL 4 MG TABLET PO PRN (18:45)
[2018-06-08] MEDS ORDERED: BACITRACIN 28.4 GM OINTMENT TP PRN (18:45)
[2018-06-08 19:10] VITALS: BP 102/72
[2018-06-08] MEDS ORDERED: ZOLPIDEM TARTRATE 10 MG TABLET PO PRN (21:00)
[2018-06-09 04:37] VITALS: BP 110/68
[2018-06-09 08:13] VITALS: BP 109/60
[2018-06-09 08:49] LABS: BASOPHILS % (AUTO) 0.8 % (0.0-2.0); EOSINOPHILS % (AUTO) 4.1 % (1.0-6.0); HEMOGLOBIN 13.3 g/dL (13.5-17.5); LYMPHOCYTES % (AUTO) 39.2 % (22.0-44.0); MEAN CORPUSCULAR HEMOGLOBIN 31.1 pg (26.0-34.0); MEAN CORPUSCULAR HGB CONC 34.2 G/dL (31.0-37.0); MEAN CORPUSCULAR VOLUME 91 fL (80-100); MONOCYTES # (AUTO) 0.5 K/uL (0.1-1.0); MONOCYTES % (AUTO) 10.6 % (2.0-9.0); NEUTROPHILS # (AUTO) 2.3 K/uL (1.8-7.7); NEUTROPHILS % (AUTO) 45.3 % (40.0-70.0); PLATELET COUNT (AUTO) 301 K/uL (150-450); RED BLOOD CELL COUNT(AUTO) 4.29 MIL/uL (4.50-5.90); RED CELL DISTRIBUTION WIDTH 13.5 % (11.5-14.5)
[2018-06-09] MEDS: DOCUSATE SODIUM 100 MG CAPSULE PO SCH (09:14)
[2018-06-09] MEDS: RisperiDONE 3 MG TABLET PO SCH ×2 (09:14→16:04)
[2018-06-09] MEDS: OMEPRAZOLE 20 MG CAPSULE PO SCH (09:14)
[2018-06-09 09:39] LABS: ALANINE AMINOTRANSFERASE 18 U/L (12-78); ALBUMIN 2.9 g/dL (3.4-5.0); ALKALINE PHOSPHATASE 68 U/L (46-116); ANION GAP 6 mmol/L (8-16); ASPARTATE AMINOTRANSFERASE 14 U/L (15-37); BILIRUBIN,TOTAL 0.1 mg/dL (0.1-1.0); CALCIUM, TOTAL 8.9 mg/dL (8.8-10.5); CARBON DIOXIDE 29 mmol/L (22-29); CHLORIDE 106 mmol/L (98-107); CHOL/HDL RATIO 3.1 (4.2-7.3); CHOLESTEROL 132 mg/dL (131-200); CREATININE 1.15 mg/dL (0.60-1.30); GLOMERULAR FILTR. RATE CALC > 60 mL/min (>60); GLUCOSE,RANDOM 84 mg/dL (70-110); HDL CHOLESTEROL 43 mg/dL (40-60); LDL CHOL (CALC.) 73 mg/dL (0-130); POTASSIUM 3.7 mmol/L (3.5-5.1); SODIUM SERUM 141 mmol/L (136-145); TOTAL PROTEIN, SERUM 6.2 g/dL (6.4-8.2); TRIGLYCERIDES 81 mg/dL (15-150); UREA NITROGEN, BLOOD 10 mg/dL (7-18)
[2018-06-09 16:03] VITALS: BP 116/65
[2018-06-10 07:00] VITALS: BP 106/67
[2018-06-10] MEDS: OMEPRAZOLE 20 MG CAPSULE PO SCH (08:34)
[2018-06-10] MEDS: RisperiDONE 3 MG TABLET PO SCH ×2 (08:34→16:24)
[2018-06-10] MEDS: DOCUSATE SODIUM 100 MG CAPSULE PO SCH (08:34)
[2018-06-10 08:56] VITALS: BP 121/62
[2018-06-10 16:34] VITALS: BP 123/67
[2018-06-11 05:40] VITALS: BP 118/72
[2018-06-11 08:10] VITALS: BP 110/62
[2018-06-11] MEDS: DOCUSATE SODIUM 100 MG CAPSULE PO SCH (08:27)
[2018-06-11] MEDS: OMEPRAZOLE 20 MG CAPSULE PO SCH (08:27)
[2018-06-11] MEDS: RisperiDONE 3 MG TABLET PO SCH ×2 (08:27→16:19)
[2018-06-11 16:00] VITALS: BP 117/74
[2018-06-11] MEDS: LORazepam 2 MG TABLET PO PRN (16:47)
[2018-06-12] VITALS: BP 112/64
[2018-06-12 08:03] VITALS: BP 114/76
[2018-06-12] MEDS: OMEPRAZOLE 20 MG CAPSULE PO SCH (08:19)
[2018-06-12] MEDS: DOCUSATE SODIUM 100 MG CAPSULE PO SCH (08:19)
[2018-06-12] MEDS: RisperiDONE 3 MG TABLET PO SCH ×2 (08:19→16:33)
[2018-06-12 16:09] VITALS: BP 103/63
[2018-06-12] MEDS: LORazepam 2 MG TABLET PO PRN (18:43)
[2018-06-13 00:11] VITALS: BP 110/72
[2018-06-13 08:11] VITALS: BP 110/66
[2018-06-13] MEDS: OMEPRAZOLE 20 MG CAPSULE PO SCH (08:15)
[2018-06-13] MEDS: RisperiDONE 3 MG TABLET PO SCH ×2 (08:15→16:18)
[2018-06-13] MEDS: DOCUSATE SODIUM 100 MG CAPSULE PO SCH (08:15)
[2018-06-13 16:03] VITALS: BP 117/75
[2018-06-13] MEDS: ACETAMINOPHEN 325 MG TABLET PO PRN (18:37)
[2018-06-14 02:27] VITALS: BP 112/68
[2018-06-14] MEDS: RisperiDONE 3 MG TABLET PO SCH ×2 (08:09→16:14)
[2018-06-14] MEDS: DOCUSATE SODIUM 100 MG CAPSULE PO SCH (08:09)
[2018-06-14] MEDS: OMEPRAZOLE 20 MG CAPSULE PO SCH (08:09)
[2018-06-14 08:18] VITALS: BP 117/68
[2018-06-14 16:05] VITALS: BP 118/65
[2018-06-14] MEDS: LORazepam 2 MG TABLET PO PRN (16:14)
[2018-06-14] MEDS: ACETAMINOPHEN 325 MG TABLET PO PRN (16:46)
[2018-06-15 02:07] VITALS: BP 112/68
[2018-06-15 08:00] VITALS: BP 118/70
[2018-06-15] MEDS: RisperiDONE 3 MG TABLET PO SCH ×2 (08:12→16:41)
[2018-06-15] MEDS: OMEPRAZOLE 20 MG CAPSULE PO SCH (08:12)
[2018-06-15] MEDS: DOCUSATE SODIUM 100 MG CAPSULE PO SCH (08:12)
[2018-06-15 16:06] VITALS: BP 112/71
[2018-06-15] MEDS: ACETAMINOPHEN 325 MG TABLET PO PRN (18:30)
[2018-06-16 05:34] VITALS: BP 120/81
[2018-06-16 08:05] VITALS: BP 120/74
[2018-06-16] MEDS: OMEPRAZOLE 20 MG CAPSULE PO SCH (08:30)
[2018-06-16] MEDS: RisperiDONE 3 MG TABLET PO SCH ×2 (08:30→16:21)
[2018-06-16] MEDS: DOCUSATE SODIUM 100 MG CAPSULE PO SCH (08:30)
[2018-06-16 16:26] VITALS: BP 115/73
== END 2018-06-16 16:35 | disposition home or self-care (01) | DRG 885 ==
LOC: B2X 15:01
PROVIDERS: ADMIT Psychiatry & Neurology Psychiatry; ATTEND Psychiatry & Neurology Psychiatry
DX: F25.9 Schizoaffective disorder, unspecified (principal); R45.851 Suicidal ideations; F15.90 Other stimulant use, unspecified, uncomplicated; F41.9 Anxiety disorder, unspecified; K21.9 Gastro-esophageal reflux disease without esophagitis; K59.00 Constipation, unspecified; N28.9 Disorder of kidney and ureter, unspecified; Z79.899 Other long term (current) drug therapy; Z71.51 Drug abuse counseling and surveillance of drug abuser; Z23 Encounter for immunization
CPT/HCPCS: 86592; 90686

== ENCOUNTER 2018-06-30 15:30 | Inpatient (IN) | payer BC, MEDICAID ==
[~2018-06-30] VITALS: Ht 180.3 cm; Wt 102.1 kg
[2018-06-30] MEDS ORDERED: HALOPERIDOL 5 MG TABLET PO PRN (16:30)
[2018-06-30] MEDS ORDERED: LORazepam 2 MG TABLET PO PRN (16:30)
[2018-06-30] MEDS ORDERED: ZOLPIDEM TARTRATE 10 MG TABLET PO PRN (16:30)
[2018-06-30 16:44] VITALS: BP 114/77
[2018-06-30] MEDS ORDERED: -PHARMACY VACCINE NOTE- MISC ONE (17:00)
[2018-06-30 21:19] VITALS: BP 128/76
[2018-07-01 01:39] VITALS: BP 120/81
[2018-07-01 08:19] VITALS: BP 115/79
[2018-07-01] MEDS: RisperiDONE 3 MG TABLET PO SCH ×2 (08:44→16:34)
[2018-07-01] MEDS: DIVALPROEX SODIUM 500 MG DR TABLET PO SCH ×2 (08:44→16:34)
[2018-07-01] MEDS ORDERED: IBUPROFEN 600 MG TABLET PO PRN (09:00)
[2018-07-01] MEDS ORDERED: MAG HYDROX/AL HYDROX/SIMETH ES 30 ML SUSPENSION UDCUP PO PRN (09:00)
[2018-07-01] MEDS ORDERED: BACITRACIN 28.4 GM OINTMENT TP PRN (09:00)
[2018-07-01] MEDS ORDERED: CloNIDine HCL 0.1 MG TABLET PO PRN (09:00)
[2018-07-01] MEDS ORDERED: ACETAMINOPHEN 325 MG TABLET PO PRN (09:00)
[2018-07-01] MEDS ORDERED: BENZOCAINE/MENTHOL LOZENGE MM PRN (09:00)
[2018-07-01] MEDS ORDERED: ALBUTEROL SULFATE HFA 90 MCG/PUFF 8 GM INHALER IH PRN (09:00)
[2018-07-01] MEDS ORDERED: PETROLATUM,WHITE 71 GM JELLY TP PRN (09:00)
[2018-07-01] MEDS ORDERED: MAGNESIUM HYDROXIDE SUSPENSION 30 ML UDCUP PO PRN (09:00)
[2018-07-01] MEDS ORDERED: LOPERAMIDE HCL 2 MG CAPSULE PO PRN (09:00)
[2018-07-01] MEDS ORDERED: ONDANSETRON HCL 4 MG TABLET PO PRN (09:00)
[2018-07-01 09:23] LABS: BASOPHILS % (AUTO) 1.3 % (0.0-2.0); EOSINOPHILS % (AUTO) 6.1 % (1.0-6.0); HEMATOCRIT 40.1 % (41-53); HEMOGLOBIN 13.4 g/dL (13.5-17.5); LYMPHOCYTES # (AUTO) 2.1 K/uL (1.0-4.8); LYMPHOCYTES % (AUTO) 40.7 % (22.0-44.0); MEAN CORPUSCULAR HEMOGLOBIN 30.6 pg (26.0-34.0); MEAN CORPUSCULAR HGB CONC 33.3 G/dL (31.0-37.0); MEAN CORPUSCULAR VOLUME 92 fL (80-100); MONOCYTES # (AUTO) 0.5 K/uL (0.1-1.0); MONOCYTES % (AUTO) 9.4 % (2.0-9.0); NEUTROPHILS # (AUTO) 2.2 K/uL (1.8-7.7); NEUTROPHILS % (AUTO) 42.5 % (40.0-70.0); PLATELET COUNT (AUTO) 266 K/uL (150-450); RED BLOOD CELL COUNT(AUTO) 4.36 MIL/uL (4.50-5.90); RED CELL DISTRIBUTION WIDTH 13.4 % (11.5-14.5)
[2018-07-01 09:41] LABS: HEMOGLOBIN A1C 5.5 % (4.5-6.2)
[2018-07-01 09:55] LABS: ALANINE AMINOTRANSFERASE 38 U/L (12-78); ALBUMIN 2.9 g/dL (3.4-5.0); ALKALINE PHOSPHATASE 69 U/L (46-116); ANION GAP 6 mmol/L (8-16); ASPARTATE AMINOTRANSFERASE 36 U/L (15-37); BILIRUBIN,TOTAL 0.3 mg/dL (0.1-1.0); CALCIUM, TOTAL 8.6 mg/dL (8.8-10.5); CARBON DIOXIDE 28 mmol/L (22-29); CHLORIDE 107 mmol/L (98-107); CHOLESTEROL 140 mg/dL (131-200); CREATININE 1.03 mg/dL (0.60-1.30); FREE T4 (FREE THYROXINE) 0.78 ng/dL (0.76-1.46); GLOMERULAR FILTR. RATE CALC > 60 mL/min (>60); GLUCOSE,RANDOM 89 mg/dL (70-110); HDL CHOLESTEROL 46 mg/dL (40-60); LDL CHOL (CALC.) 82 mg/dL (0-130); SODIUM SERUM 141 mmol/L (136-145); THYROID STIMULATING HORMONE 0.54 uIU/mL (0.36-3.74); TOTAL PROTEIN, SERUM 5.9 g/dL (6.4-8.2); TRIGLYCERIDES 62 mg/dL (15-150); UREA NITROGEN, BLOOD 15 mg/dL (7-18)
[2018-07-01 16:10] VITALS: BP 100/62
[2018-07-02 00:01] VITALS: BP 110/63
[2018-07-02 08:14] VITALS: BP 120/65
[2018-07-02] MEDS: RisperiDONE 3 MG TABLET PO SCH ×2 (08:26→16:28)
[2018-07-02] MEDS: DIVALPROEX SODIUM 500 MG DR TABLET PO SCH ×2 (08:26→16:28)
[2018-07-02 16:11] VITALS: BP 121/72
[2018-07-03 02:50] VITALS: BP 116/74
[2018-07-03] MEDS: DIVALPROEX SODIUM 500 MG DR TABLET PO SCH ×2 (08:07→16:57)
[2018-07-03] MEDS: RisperiDONE 3 MG TABLET PO SCH ×2 (08:07→16:57)
[2018-07-03 08:41] VITALS: BP 112/68
[2018-07-03 16:09] VITALS: BP 111/68
[2018-07-04 01:13] VITALS: BP 115/69
[2018-07-04 08:12] VITALS: BP 120/66
[2018-07-04] MEDS: DIVALPROEX SODIUM 500 MG DR TABLET PO SCH ×2 (08:40→16:38)
[2018-07-04] MEDS: RisperiDONE 3 MG TABLET PO SCH ×2 (08:40→16:38)
[2018-07-04 16:11] VITALS: BP 120/71
[2018-07-05 01:25] VITALS: BP 115/68
[2018-07-05 08:17] VITALS: BP 122/69
[2018-07-05] MEDS: DIVALPROEX SODIUM 500 MG DR TABLET PO SCH ×2 (08:41→16:19)
[2018-07-05] MEDS: RisperiDONE 3 MG TABLET PO SCH ×2 (08:41→16:19)
[2018-07-05 16:17] VITALS: BP 111/70
[2018-07-06 04:33] VITALS: BP 112/76
[2018-07-06 08:27] VITALS: BP 131/72
[2018-07-06] MEDS: RisperiDONE 3 MG TABLET PO SCH ×2 (09:01→16:27)
[2018-07-06] MEDS: DIVALPROEX SODIUM 500 MG DR TABLET PO SCH ×2 (09:01→16:27)
[2018-07-06 16:10] VITALS: BP 117/77
[2018-07-07 00:10] VITALS: BP 120/78
[2018-07-07 08:40] VITALS: BP 109/72
[2018-07-07] MEDS: DIVALPROEX SODIUM 500 MG DR TABLET PO SCH ×2 (08:54→16:20)
[2018-07-07] MEDS: RisperiDONE 3 MG TABLET PO SCH ×2 (08:54→16:19)
[2018-07-07 16:12] VITALS: BP 131/67
[2018-07-08 05:55] VITALS: BP 126/80
[2018-07-08 08:28] VITALS: BP 111/66
[2018-07-08] MEDS: RisperiDONE 3 MG TABLET PO SCH ×2 (08:31→16:17)
[2018-07-08] MEDS: DIVALPROEX SODIUM 500 MG DR TABLET PO SCH ×2 (08:31→16:17)
[2018-07-08] MEDS ORDERED: DIVA-78 PO (10:49)
[2018-07-08 16:15] VITALS: BP 116/64
[2018-07-09 00:59] VITALS: BP 116/68
[2018-07-09 07:53] VITALS: BP 115/71
[2018-07-09] MEDS: DIVALPROEX SODIUM 500 MG DR TABLET PO SCH (08:29)
[2018-07-09] MEDS: RisperiDONE 3 MG TABLET PO SCH ×2 (08:29→16:29)
[2018-07-09] MEDS ORDERED: DIVA-54 PO (12:36)
[2018-07-09] MEDS ORDERED: DIVA500T2 PO (12:36)
[2018-07-09 13:32] VITALS: BP 115/71
[2018-07-09 16:01] VITALS: BP 123/63
[2018-07-09] MEDS ORDERED: DIVALPROEX SODIUM 500 MG DR TABLET PO SCH (21:00)
[2018-07-10] MEDS ORDERED: DIVALPROEX SODIUM 500 MG DR TABLET PO SCH (09:00)
== END 2018-07-09 17:25 | disposition home or self-care (01) | DRG 885 ==
LOC: B2X 16:28
PROVIDERS: ADMIT Psychiatry & Neurology Psychiatry; ATTEND Psychiatry & Neurology Psychiatry
DX: F20.0 Paranoid schizophrenia (principal); R45.851 Suicidal ideations; F15.10 Other stimulant abuse, uncomplicated; G47.00 Insomnia, unspecified; J44.9 Chronic obstructive pulmonary disease, unspecified; K21.9 Gastro-esophageal reflux disease without esophagitis; Z72.0 Tobacco use
CPT/HCPCS: 83036; 84439; 84443; 87081

== ENCOUNTER 2021-09-15 21:29 | Inpatient (IN) | payer MEDICARE, MEDICAID ==
[~2021-09-15] VITALS: Ht 167.6 cm; Wt 90.7 kg
[~2021-09-15 21:29] MED LIST changes: +DIVA-54 PO; +DIVA500T2 PO; -RISP3 PO; +RISP3TAB35 PO
[2021-09-15] MEDS ORDERED: LIDOCAINE 1% 10 ML VIAL SQ ONE (23:00)
[2021-09-15] MEDS ORDERED: PERTUSS(ACELL),DIPH,TET VAC/PF 0.5 ML SYRINGE IM. ONE (23:00)
[2021-09-15] MEDS ORDERED: DiphenhydrAMINE HCL 25 MG CAPSULE PO ONE (23:00)
[2021-09-15] MEDS ORDERED: ONDANSETRON HCL 4 MG/2 ML VIAL IVP ONE (23:00)
[2021-09-15] MEDS ORDERED: LORazepam 2 MG TABLET PO ONE (23:00)
[2021-09-15] MEDS ORDERED: BACITRACIN 0.9 GM PACKET OINTMENT TP ONE (23:00)
[2021-09-15] MEDS ORDERED: CefTRIAXone 1 GM/DEXTROSE 50 ML IV ONE (23:00)
[2021-09-15] MEDS ORDERED: HALOPERIDOL 5 MG TABLET PO ONE (23:00)
[2021-09-15 23:05] LABS: BASOPHILS % (AUTO) 0.7 % (0.0-2.0); HEMATOCRIT 37.7 % (41-53); HEMOGLOBIN 12.9 g/dL (13.5-17.5); LYMPHOCYTES # (AUTO) 1.7 K/uL (1.0-4.8); MEAN CORPUSCULAR HEMOGLOBIN 31.3 pg (26.0-34.0); MEAN CORPUSCULAR HGB CONC 34.1 G/dL (31.0-37.0); MEAN CORPUSCULAR VOLUME 92 fL (80-100); MONOCYTES # (AUTO) 0.8 K/uL (0.1-1.0); MONOCYTES % (AUTO) 10.8 % (2.0-9.0); NEUTROPHILS # (AUTO) 4.7 K/uL (1.8-7.7); NEUTROPHILS % (AUTO) 63.5 % (40.0-70.0); PLATELET COUNT (AUTO) 203 K/uL (150-450); RED BLOOD CELL COUNT(AUTO) 4.11 MIL/uL (4.50-5.90); RED CELL DISTRIBUTION WIDTH 12.9 % (11.5-14.5)
[2021-09-15 23:14] LABS: ANION GAP 8 mmol/L (8-16); CALCIUM, TOTAL 8.4 mg/dL (8.8-10.5); CARBON DIOXIDE 27 mmol/L (22-29); CHLORIDE 101 mmol/L (98-107); CREATININE 1.38 mg/dL (0.60-1.30); GLOMERULAR FILTR. RATE CALC 55 mL/min (>60); GLUCOSE,RANDOM 117 mg/dL (70-110); POTASSIUM 3.2 mmol/L (3.5-5.1); SODIUM SERUM 136 mmol/L (136-145); UREA NITROGEN, BLOOD 31 mg/dL (7-18)
[2021-09-15] MEDS ORDERED: VANCOMYCIN HCL 1.5 GM in DEXTROSE 5%-WATER 250 ML IV ONE (23:15)
[2021-09-15 23:17] LABS: ALBUMIN 3.1 g/dL (3.4-5.0)
[2021-09-15 23:26] LABS: COVID AG,FIA SOURCE NASOPHARYNGEAL
[2021-09-15 23:28] LABS: ALANINE AMINOTRANSFERASE 94 U/L (12-78); ALKALINE PHOSPHATASE 137 U/L (46-116); ASPARTATE AMINOTRANSFERASE 208 U/L (15-37); BILIRUBIN,TOTAL 0.2 mg/dL (0.1-1.0); TOTAL PROTEIN, SERUM 6.9 g/dL (6.4-8.2)
[2021-09-16] MEDS ORDERED: HYDROmorphone 2 MG/ML VIAL IVP ONE
[2021-09-16] MEDS ORDERED: POTASSIUM CHLORIDE 10% 40 MEQ/30 ML LIQUID UDCUP PO ONE
[2021-09-16] MEDS ORDERED: ONDANSETRON HCL 4 MG/2 ML VIAL IVP PRN (00:45)
[2021-09-16] MEDS ORDERED: ACETAMINOPHEN 325 MG TABLET PO PRN ×2 (00:45→08:15)
[2021-09-16] MEDS ORDERED: POVIDONE-IODINE 10% 120 ML SOLUTION TP ONE (01:00)
[2021-09-16 01:20] VITALS: BP 104/62
[2021-09-16] MEDS: 0.9% SODIUM CHLORIDE 10 ML SYRINGE IVP PRN (02:05)
[2021-09-16] MEDS ORDERED: IPRATROPIUM BROMIDE 0.5 MG/2.5 ML NEB SOLUTION NEB PRN (08:15)
[2021-09-16] MEDS ORDERED: ALBUTEROL SULFATE 2.5 MG/0.5 ML NEB SOLUTION NEB PRN (08:15)
[2021-09-16] MEDS ORDERED: POTASSIUM CHLORIDE 20 MEQ ER TABLET PO ONE (08:15)
[2021-09-16 09:37] VITALS: BP 115/74
[2021-09-16] MEDS: FAMOTIDINE 20 MG TABLET PO SCH (10:05)
[2021-09-16] MEDS: OxyCODONE HCL/ACETAMINOPHEN 5-325 MG TABLET PO PRN (10:05)
[2021-09-16] MEDS: DIVALPROEX SODIUM 500 MG DR TABLET PO SCH ×2 (10:06→20:51)
[2021-09-16] MEDS: RisperiDONE 3 MG TABLET PO SCH ×2 (10:06→21:18)
[2021-09-16] MEDS: VANCOMYCIN HCL 1.25 GM in DEXTROSE 5%-WATER 250 ML IV SCH ×2 (10:06→20:50)
[2021-09-16 16:48] VITALS: BP 177/69
[2021-09-16 20:14] VITALS: BP 116/66
[2021-09-17 04:09] VITALS: BP 126/72
[2021-09-17 06:44] LABS: PHOSPHORUS 2.7 mg/dL (2.5-4.9)
[2021-09-17 06:59] LABS: BASOPHILS % (AUTO) 0.8 % (0.0-2.0); EOSINOPHILS % (AUTO) 4.3 % (1.0-6.0); HEMATOCRIT 37.5 % (41-53); HEMOGLOBIN 12.8 g/dL (13.5-17.5); LYMPHOCYTES # (AUTO) 1.5 K/uL (1.0-4.8); LYMPHOCYTES % (AUTO) 25.9 % (22.0-44.0); MEAN CORPUSCULAR HEMOGLOBIN 31.5 pg (26.0-34.0); MEAN CORPUSCULAR HGB CONC 34.1 G/dL (31.0-37.0); MEAN CORPUSCULAR VOLUME 93 fL (80-100); MONOCYTES # (AUTO) 0.6 K/uL (0.1-1.0); NEUTROPHILS # (AUTO) 3.3 K/uL (1.8-7.7); PLATELET COUNT (AUTO) 205 K/uL (150-450); RED BLOOD CELL COUNT(AUTO) 4.05 MIL/uL (4.50-5.90); RED CELL DISTRIBUTION WIDTH 12.8 % (11.5-14.5)
[2021-09-17 07:16] LABS: ALANINE AMINOTRANSFERASE 81 U/L (12-78); ALBUMIN 2.7 g/dL (3.4-5.0); ALKALINE PHOSPHATASE 101 U/L (46-116); ANION GAP 8 mmol/L (8-16); ASPARTATE AMINOTRANSFERASE 111 U/L (15-37); BILIRUBIN,TOTAL 0.3 mg/dL (0.1-1.0); CALCIUM, TOTAL 8.6 mg/dL (8.8-10.5); CARBON DIOXIDE 26 mmol/L (22-29); CHLORIDE 105 mmol/L (98-107); CHOL/HDL RATIO 3.9 (4.2-7.3); CHOLESTEROL 146 mg/dL (131-200); CREATININE 1.04 mg/dL (0.60-1.30); FREE T4 (FREE THYROXINE) 1.57 ng/dL (0.76-1.46); GLOMERULAR FILTR. RATE CALC > 60 mL/min (>60); GLUCOSE,RANDOM 90 mg/dL (70-110); HDL CHOLESTEROL 37 mg/dL (40-60); LDL CHOL (CALC.) 90 mg/dL (0-130); POTASSIUM 4.1 mmol/L (3.5-5.1); SODIUM SERUM 139 mmol/L (136-145); THYROID STIMULATING HORMONE 2.18 uIU/mL (0.36-3.74); TOTAL PROTEIN, SERUM 6.6 g/dL (6.4-8.2); TRIGLYCERIDES 93 mg/dL (15-150); UREA NITROGEN, BLOOD 23 mg/dL (7-18); VANCOMYCIN,RANDOM 15.4 mcg/mL (25.0-50.0)
[2021-09-17 07:21] LABS: HEMOGLOBIN A1C 5.4 % (3.8-5.6)
[2021-09-17 07:51] VITALS: BP 125/72
[2021-09-17] MEDS ORDERED: VANCOMYCIN HCL 1.5 GM in DEXTROSE 5%-WATER 250 ML IV SCH (08:00)
[2021-09-17] MEDS: RisperiDONE 3 MG TABLET PO SCH ×2 (08:48→20:49)
[2021-09-17] MEDS: FAMOTIDINE 20 MG TABLET PO SCH (08:48)
[2021-09-17] MEDS: DIVALPROEX SODIUM 500 MG DR TABLET PO SCH ×2 (08:49→20:49)
[2021-09-17] MEDS: VANCOMYCIN HCL 1.5 GM in DEXTROSE 5%-WATER 250 ML IV SCH ×2 (08:52→20:49)
[2021-09-17 15:43] VITALS: BP 118/61
[2021-09-17 19:55] VITALS: BP 131/67
[2021-09-18 05:32] VITALS: BP 121/71
[2021-09-18 06:58] LABS: ANION GAP 5 mmol/L (8-16); CALCIUM, TOTAL 8.8 mg/dL (8.8-10.5); CARBON DIOXIDE 27 mmol/L (22-29); CHLORIDE 104 mmol/L (98-107); CREATININE 0.96 mg/dL (0.60-1.30); GLOMERULAR FILTR. RATE CALC > 60 mL/min (>60); GLUCOSE,RANDOM 91 mg/dL (70-110); POTASSIUM 4.2 mmol/L (3.5-5.1); SODIUM SERUM 136 mmol/L (136-145); UREA NITROGEN, BLOOD 16 mg/dL (7-18)
[2021-09-18] MEDS: VANCOMYCIN HCL 1.5 GM in DEXTROSE 5%-WATER 250 ML IV SCH ×2 (08:27→20:42)
[2021-09-18] MEDS: FAMOTIDINE 20 MG TABLET PO SCH (08:28)
[2021-09-18] MEDS: DIVALPROEX SODIUM 500 MG DR TABLET PO SCH ×2 (08:28→20:43)
[2021-09-18] MEDS: RisperiDONE 3 MG TABLET PO SCH ×2 (08:28→20:43)
[2021-09-18 08:53] VITALS: BP 124/71
[2021-09-18] MEDS: OxyCODONE HCL/ACETAMINOPHEN 5-325 MG TABLET PO PRN (10:39)
[2021-09-18 15:34] VITALS: BP 102/66
[2021-09-18 19:42] VITALS: BP 120/71
[2021-09-19 04:34] VITALS: BP 116/73
[2021-09-19 06:46] LABS: ANION GAP 6 mmol/L (8-16); CALCIUM, TOTAL 8.7 mg/dL (8.8-10.5); CARBON DIOXIDE 26 mmol/L (22-29); CHLORIDE 105 mmol/L (98-107); CREATININE 0.93 mg/dL (0.60-1.30); GLOMERULAR FILTR. RATE CALC > 60 mL/min (>60); GLUCOSE,RANDOM 92 mg/dL (70-110); POTASSIUM 4.1 mmol/L (3.5-5.1); SODIUM SERUM 137 mmol/L (136-145); UREA NITROGEN, BLOOD 16 mg/dL (7-18); VANCOMYCIN,RANDOM 23.1 mcg/mL (25.0-50.0)
[2021-09-19] MEDS: VANCOMYCIN HCL 1.5 GM in DEXTROSE 5%-WATER 250 ML IV SCH (07:20)
[2021-09-19 08:12] VITALS: BP 125/78
[2021-09-19] MEDS: RisperiDONE 3 MG TABLET PO SCH (08:52)
[2021-09-19] MEDS: FAMOTIDINE 20 MG TABLET PO SCH (08:52)
[2021-09-19] MEDS: DIVALPROEX SODIUM 500 MG DR TABLET PO SCH (08:52)
[2021-09-19] MEDS ORDERED: DIVA-54 PO (10:16)
[2021-09-19] MEDS ORDERED: RISP3TAB35 PO (10:16)
[2021-09-19] MEDS ORDERED: DIVA-112 PO (10:16)
[2021-09-19] MEDS ORDERED: AMOX1TAB16 PO (10:17)
[2021-09-19 16:00] VITALS: BP 122/75
== END 2021-09-19 18:00 | disposition home or self-care (01) | DRG 604 ==
LOC: EMS 21:30 → 6N 09-16 00:55
PROVIDERS: ADMIT Internal Medicine; ATTEND Internal Medicine
DX: S81.811A Laceration without foreign body, right lower leg, initial encounter (principal); N17.0 Acute kidney failure with tubular necrosis; L03.115 Cellulitis of right lower limb; E44.1 Mild protein-calorie malnutrition; I10 Essential (primary) hypertension; Z87.891 Personal history of nicotine dependence; F20.9 Schizophrenia, unspecified; F15.10 Other stimulant abuse, uncomplicated; E87.6 Hypokalemia; E83.51 Hypocalcemia
CPT/HCPCS: 80048; 80053; 80061; 80202; 83036; 83605; 83735; 84100; 84439; 84443; 85025; 87040; 90715; 99285; G0480; J0696; J1170; J2405; J3370; J3490; J7060

== ENCOUNTER 2023-10-01 19:55 | Inpatient (IN) | payer MEDICARE, MEDICAID ==
[~2023-10-01] VITALS: Ht 167.6 cm; Wt 103.0 kg
[~2023-10-01 19:55] MED LIST changes: +DIVA-112 PO; -DIVA-54 PO; -DIVA500T2 PO; -RISP3TAB35 PO; +RISP3TAB77 PO
[2023-10-02] MEDS ORDERED: ZOLPIDEM TARTRATE 10 MG TABLET PO PRN (00:15)
[2023-10-02] MEDS ORDERED: LORazepam 2 MG TABLET PO PRN (00:15)
[2023-10-02] MEDS ORDERED: HALOPERIDOL 5 MG TABLET PO PRN (00:15)
[2023-10-02 04:31] VITALS: BP 110/66; PULSE 63; RESP 18; TEMP 97.5; O2SAT 99
[2023-10-02] MEDS ORDERED: MAGNESIUM HYDROXIDE SUSPENSION 30 ML UDCUP PO PRN (07:00)
[2023-10-02] MEDS ORDERED: LOPERAMIDE HCL 2 MG CAPSULE PO PRN (07:00)
[2023-10-02] MEDS ORDERED: CloNIDine HCL 0.1 MG TABLET PO PRN (07:00)
[2023-10-02] MEDS ORDERED: ACETAMINOPHEN 325 MG TABLET PO PRN (07:00)
[2023-10-02] MEDS ORDERED: ONDANSETRON HCL 4 MG TABLET PO PRN (07:00)
[2023-10-02] MEDS ORDERED: DOCUSATE SODIUM 100 MG CAPSULE PO PRN (07:00)
[2023-10-02] MEDS ORDERED: PETROLATUM,WHITE 28 GM JELLY TP PRN (07:00)
[2023-10-02] MEDS ORDERED: GuaiFENesin/D-METHORPHAN [SUGAR-FREE] 200-20MG/10 ML SYRUP UDCUP PO PRN (07:00)
[2023-10-02] MEDS ORDERED: ALBUTEROL SULFATE HFA 90 MCG/PUFF 8 GM INHALER IH PRN (07:00)
[2023-10-02] MEDS ORDERED: NICOTINE 14 MG/24 HOUR PATCH TD PRN (07:00)
[2023-10-02] MEDS ORDERED: MAG HYDROX/ALUMINUM HYD/SIMETH ES 30 ML SUSPENSION UDCUP PO PRN (07:00)
[2023-10-02 15:53] VITALS: BP 113/60; PULSE 74; RESP 17; TEMP 98.4; O2SAT 95
[2023-10-02] MEDS: DIVALPROEX SODIUM 500 MG DR TABLET PO SCH (16:11)
[2023-10-02] MEDS: RisperiDONE 3 MG TABLET PO SCH (16:12)
[2023-10-02 20:56] VITALS: BP 109/73; PULSE 72; RESP 18; TEMP 97.8; O2SAT 98
[2023-10-03 09:01] VITALS: BP 111/60; PULSE 83; RESP 18; TEMP 97.9; O2SAT 97
[2023-10-03 11:36] LABS: EOSINOPHILS % (AUTO) 2.9 % (1.0-6.0); HEMATOCRIT 37.9 % (41-53); HEMOGLOBIN 12.8 g/dL (13.5-17.5); LYMPHOCYTES # (AUTO) 1.4 K/uL (1.0-4.8); LYMPHOCYTES % (AUTO) 20.7 % (22.0-44.0); MEAN CORPUSCULAR HEMOGLOBIN 30.9 pg (26.0-34.0); MEAN CORPUSCULAR HGB CONC 33.7 G/dL (31.0-37.0); MEAN CORPUSCULAR VOLUME 92 fL (80-100); MONOCYTES # (AUTO) 0.7 K/uL (0.1-1.0); MONOCYTES % (AUTO) 10.6 % (2.0-9.0); NEUTROPHILS # (AUTO) 4.4 K/uL (1.8-7.7); NEUTROPHILS % (AUTO) 64.8 % (40.0-70.0); PLATELET COUNT (AUTO) 268 K/uL (150-450); RED BLOOD CELL COUNT(AUTO) 4.14 MIL/uL (4.50-5.90); RED CELL DISTRIBUTION WIDTH 13.5 % (11.5-14.5); WHITE BLOOD COUNT (AUTO) 6.8 K/uL (4.5-11.0)
[2023-10-03 12:05] LABS: ALANINE AMINOTRANSFERASE 18 U/L (12-78); ALBUMIN 2.5 g/dL (3.4-5.0); ALKALINE PHOSPHATASE 80 U/L (46-116); ANION GAP 9 mmol/L (8-16); ASPARTATE AMINOTRANSFERASE 14 U/L (15-37); BILIRUBIN,TOTAL 0.3 mg/dL (0.1-1.0); CALCIUM, TOTAL 8.3 mg/dL (8.8-10.5); CARBON DIOXIDE 25 mmol/L (22-29); CHLORIDE 106 mmol/L (98-107); CHOLESTEROL 157 mg/dL (131-200); CREATININE 0.83 mg/dL (0.60-1.30); GLOMERULAR FILTR. RATE CALC > 60 mL/min (>60); GLUCOSE,RANDOM 96 mg/dL (70-110); POTASSIUM 4.4 mmol/L (3.5-5.1); SODIUM SERUM 140 mmol/L (136-145); TRIGLYCERIDES 218 mg/dL (15-150); UREA NITROGEN, BLOOD 11 mg/dL (7-18)
[2023-10-03 12:11] LABS: HEMOGLOBIN A1C 5.4 % (3.8-5.6)
[2023-10-03 12:15] LABS: CHOL/HDL RATIO 4.2 (4.2-7.3); HDL CHOLESTEROL 37 mg/dL (40-60); LDL CHOL (CALC.) 76 mg/dL (0-130)
[2023-10-03 12:40] LABS: THYROID STIMULATING HORMONE 0.65 uIU/mL (0.36-3.74)
[2023-10-03 18:12] VITALS: RESP 17
[2023-10-03] MEDS: IBUPROFEN 400 MG TABLET PO PRN (18:12)
[2023-10-03 19:02] VITALS: RESP 18
[2023-10-03 21:41] VITALS: BP 125/70; PULSE 60; RESP 18; TEMP 97.6; O2SAT 98
[2023-10-04 09:01] VITALS: BP 103/65; PULSE 84; RESP 17; TEMP 97.4; O2SAT 99
[2023-10-04 10:44] LABS: APPEARANCE,URINE CLEAR (CLEAR); BILIRUBIN,URINE NEGATIVE (NEGATIVE); COLOR,URINE COLORLESS (YELLOW); GLUCOSE, URINE (UA) NEGATIVE (NEGATIVE); KETONES,URINE NEGATIVE (NEGATIVE); LEUKOCYTE ESTERASE ,URINE NEGATIVE (NEGATIVE); NITRATE,URINE NEGATIVE (NEGATIVE); OCCULT BLOOD,URINE NEGATIVE (NEGATIVE); PH,URINE 6.5 (5.0-8.0); PH,URINE DRUG SCREEN 6.5 (5.0-8.0); PROTEIN,URINE NEGATIVE (NEGATIVE); SPECIFIC GRAVITIY, URINE 1.006 (1.003-1.030); UROBILINOGEN,URINE <=1.0 mg/dL (<=1.0)
[2023-10-04 10:55] LABS: ALCOHOL, URINE DRUG SCREEN NEGATIVE (NEGATIVE); AMPHET/METH SCREEN,URINE NEGATIVE (NEGATIVE); BARBITURATE SCREEN, URINE NEGATIVE (NEGATIVE); BENZODIAZEPINES SCREEN,URINE NEGATIVE (NEGATIVE); CANNABINOID SCREEN,URINE NEGATIVE (NEGATIVE); COCAINE SCREEN,URINE NEGATIVE (NEGATIVE); METHADONE SCREEN, URINE NEGATIVE (NEGATIVE); OPIATE SCREEN,URINE NEGATIVE (NEGATIVE); PHENCYCLIDINE SCREEN,URINE NEGATIVE (NEGATIVE)
[2023-10-04 17:45] VITALS: BP 111/69; PULSE 89; RESP 20; TEMP 97.6; O2SAT 98
[2023-10-04 22:25] VITALS: BP 111/66; PULSE 79; RESP 18; TEMP 98.6; O2SAT 96
[2023-10-05 09:37] VITALS: BP 100/60; PULSE 80; RESP 17; TEMP 98; O2SAT 98
[2023-10-05] MEDS ORDERED: DIVA-112 PO (09:53)
[2023-10-05] MEDS ORDERED: RISP3TAB35 PO (09:53)
== END 2023-10-05 13:00 | disposition home or self-care (01) | DRG 885 ==
LOC: B2S 10-02 00:14
PROVIDERS: ADMIT Psychiatry & Neurology Child & Adolescent Psychiatry; ATTEND Psychiatry & Neurology Child & Adolescent Psychiatry
PROC: GZHZZZZ Group Psychotherapy (ICD-10-PCS; principal; 2023-10-02)
DX: F25.0 Schizoaffective disorder, bipolar type (principal); R45.851 Suicidal ideations; Z59.00 Homelessness unspecified; J44.9 Chronic obstructive pulmonary disease, unspecified; K21.9 Gastro-esophageal reflux disease without esophagitis; K58.9 Irritable bowel syndrome, unspecified; F41.9 Anxiety disorder, unspecified; G47.00 Insomnia, unspecified; Z79.899 Other long term (current) drug therapy
CPT/HCPCS: 80053; 80061; 80307; 81003; 83036; 84443; 85025; 87081

== ENCOUNTER 2023-10-01 23:42 | Emergency (ER) | payer MEDICARE, MEDICAID ==
[~2023-10-01] VITALS: Ht 167.6 cm; Wt 100.0 kg
[2023-10-02 01:08] VITALS: TEMP 98
[2023-10-02 01:12] VITALS: BP 138/87; PULSE 78; RESP 17
[2023-10-02 01:53] LABS: BASOPHILS % (AUTO) 1.2 % (0.0-2.0); EOSINOPHILS % (AUTO) 2.5 % (1.0-6.0); HEMATOCRIT 36.8 % (41-53); HEMOGLOBIN 12.4 g/dL (13.5-17.5); LYMPHOCYTES # (AUTO) 2.3 K/uL (1.0-4.8); LYMPHOCYTES % (AUTO) 28.6 % (22.0-44.0); MEAN CORPUSCULAR HEMOGLOBIN 30.6 pg (26.0-34.0); MEAN CORPUSCULAR HGB CONC 33.7 G/dL (31.0-37.0); MEAN CORPUSCULAR VOLUME 91 fL (80-100); MONOCYTES # (AUTO) 0.9 K/uL (0.1-1.0); MONOCYTES % (AUTO) 11.4 % (2.0-9.0); NEUTROPHILS # (AUTO) 4.6 K/uL (1.8-7.7); NEUTROPHILS % (AUTO) 56.3 % (40.0-70.0); PLATELET COUNT (AUTO) 340 K/uL (150-450); RED BLOOD CELL COUNT(AUTO) 4.06 MIL/uL (4.50-5.90); RED CELL DISTRIBUTION WIDTH 13.6 % (11.5-14.5); WHITE BLOOD COUNT (AUTO) 8.2 K/uL (4.5-11.0)
[2023-10-02 01:59] LABS: COVID AG,FIA SOURCE NASAL SWAB
[2023-10-02 02:01] LABS: ANION GAP 11 mmol/L (8-16); CALCIUM, TOTAL 8.5 mg/dL (8.8-10.5); CARBON DIOXIDE 27 mmol/L (22-29); CHLORIDE 103 mmol/L (98-107); CREATININE 0.94 mg/dL (0.60-1.30); GLOMERULAR FILTR. RATE CALC > 60 mL/min (>60); GLUCOSE,RANDOM 107 mg/dL (70-110); POTASSIUM 3.8 mmol/L (3.5-5.1); SODIUM SERUM 141 mmol/L (136-145); UREA NITROGEN, BLOOD 6 mg/dL (7-18)
[2023-10-02 02:04] LABS: ALCOHOL, BLOOD (SERUM) < 3 mg/dL (0-10)
[2023-10-02 02:08] LABS: ALANINE AMINOTRANSFERASE 18 U/L (12-78); ALBUMIN 2.8 g/dL (3.4-5.0); ALKALINE PHOSPHATASE 90 U/L (46-116); ASPARTATE AMINOTRANSFERASE 16 U/L (15-37); BILIRUBIN,TOTAL 0.2 mg/dL (0.1-1.0); TOTAL PROTEIN, SERUM 6.2 g/dL (6.4-8.2)
[2023-10-02 02:25] LABS: SARS-COV2 (COVID) ANTIGEN,FIA Negative (Negative)
[2023-10-02 02:44] LABS: ALCOHOL, URINE DRUG SCREEN NEGATIVE (NEGATIVE); AMPHET/METH SCREEN,URINE NEGATIVE (NEGATIVE); BARBITURATE SCREEN, URINE NEGATIVE (NEGATIVE); BENZODIAZEPINES SCREEN,URINE NEGATIVE (NEGATIVE); CANNABINOID SCREEN,URINE NEGATIVE (NEGATIVE); COCAINE SCREEN,URINE NEGATIVE (NEGATIVE); METHADONE SCREEN, URINE NEGATIVE (NEGATIVE); OPIATE SCREEN,URINE NEGATIVE (NEGATIVE); PHENCYCLIDINE SCREEN,URINE NEGATIVE (NEGATIVE)
== END 2023-10-02 03:56 | disposition short-term general hospital (02) ==
LOC: EMS 23:44 → MERGE 23:44 → B2S 10-02 02:19 → UNDOADMIN 10-02 02:19 → EMS 10-02 03:56
DX: F25.9 Schizoaffective disorder, unspecified (principal); F15.90 Other stimulant use, unspecified, uncomplicated; Z79.899 Other long term (current) drug therapy; Z20.822 Contact with and (suspected) exposure to COVID-19
CPT/HCPCS: 99284; 87426; 80053; 85025; 36415; 80307; G0480; 99285